=== PATIENT | female | born 1955 | race Caucasian/White ===

== ENCOUNTER → 2019-06-13 14:10 | Outpatient (CLI) | payer MEDICARE, BC, SELFPAY ==
--- NOTE | 2019-06-13 14:16 | US_ITS ---
STUDY: ULTRASOUND OF THE FEMALE PELVIS - COMPLETE REASON FOR EXAM: Female, 63 years old. Postmenopausal bleeding. LMP: Post menopause. TECHNIQUE: Transabdominal and Transvaginal. Transabdominal ultrasound is limited. TECHNICAL QUALITY: Adequate. COMPARISON: None. FINDINGS: The uterus is retroverted and is in a midline position. The uterus measures 7.9 x 3.7 x 4.0 cm. Normal uterine cervix. The endometrium is suboptimally visualized and suggested to measure 18.4 mm in thickness, and is heterogeneous (striated). Cannot exclude an endometrial mass. There is no demonstrated myometrial mass. I.U.D. - The patient does not have an I.U.D. there are several calcifications throughout the uterus which may be related to calcified uterine vessels, cannot exclude small uterine fibroids. The bilateral ovaries are not visualized. There is no fluid in the cul-de-sac. The pre void volume of the bladder was 197 ml. US/Transvaginal Non- IMPRESSION: Small uterine fibroids versus calcified uterine vessels. Heterogeneous enlargement of the endometrial stripe, cannot exclude endometrial mass. In the clinical presentation, endometrial hyperplasia or carcinoma cannot be excluded. If indicated, follow-up with [employer] consultation or further characterization with MRI of the pelvis in nonacute setting recommended. Electronically Signed: Courtney Goetz MD at 3:29 EST , Service support ,
== END ==
PROVIDERS: Family Provider Family Medicine; PCP Family Medicine; Referring Provider Nurse Practitioner Family; Visit Provider Nurse Practitioner Family
DX: N95.0 Postmenopausal bleeding (principal)
CPT/HCPCS: 76830; 76856

== ENCOUNTER 2021-12-28 12:24 | Outpatient (RCR) | payer MEDICARE, BC, SELFPAY ==
--- NOTE | 2021-12-28 14:58 | HP.OTEVAL ---
Patient's Visit Information SHANNAN CORREIA is a 66 year old F, referred to Occupational Therapy by LEORA ASTORGA, with a diagnosis of lymphedema. Date of Evaluation: 12/28/21 Occupational Therapist: Heydi King, TAMRA/Noah, CHT - Subjective This 66 year old female was seen for OT eval with dx of edema- pt states she was also referred to a vascular specialist Dr. Trejo but the apt was postponed for about two weeks- pt states she has had swelling for awhile- pt states she has had water pill adjustment over the years- and feel pretty good about mtg. her LE swelling- pt is not sure what compression class her compression socks were-. Breas cancer in 2012- pancreatic cancer dx in 2019 sx in 2020- pt states she has small sites of mets to liver that she is currently being treated for. pt states she has been sleeping in her recliner because her hips hurt when she is in her bed- states feet and ankles are not swollen in the am. pt states she has been wearing her compression socks for about a week- pt states got them from the pharmacy in [place]- pt has concerns with attending a consistent therapy program- - Lymphedema (Circumferential Measure) Mid-foot: right 23cm left 23m Ankle: right 28cm left 27cm Lower calf: right 33cm left 32cm Largest calf: right 45cm left 46cm Below knee: right 43cm left 44cm - Lower Limb Functional Index Lower Extremity Functional Score: 17 - Goals Demonstrate a 20% reduction in edema by d/c: Yes Demonstrate adequate knowledge of self-massage by 2nd week: Yes Demonstrate adequate knowledge skin care/prec by 2nd week: Yes Demonstrate adequate knowledge therapeutic exercises by d/c: Yes Select approp compression garment w/donning/care/wear by d/c: Yes Voice need to replace compression garment every 4-6mo by dc: Yes - Rehabilitation General Assessment: pt demo with bilateral LE edema and in need of ed. on life long mtg of her swelling (lymphedema) pt is worried about cost of compression devices and attending therapy- Therapist reassured pt that she will be ed. on life long mtg of edema and she can do her HEP. pt agreed to therapy session - Today therapist ed. pt on lymph stimulations exercise and self manual lymph drainage massage - along with need of 20-30 mmHg compression socks or transition to legging if she feels she has swelling above knees- (pt demo understanding) - Therapist ed. pt on skin care and precautions- advised pt to continue with her current compression socks and initiate her lymph stim ex. 3-4 x a day ( using support and to her comfort level) along with SMLD edison. 2 x a day- pt was given handouts and demo understanding and agree to POD. Rehabilitation Potential: Questionable - Anticipated Interventions Education re Life-long lymphedema Management, Education re Skin Care and Precautions, Education re Self Massage Techniques, Education re Correct Donning Tech,Care&Wearing Sched Comp Garments, Home Program - Visit Plan TEXT: Thank you for the opportunity to evaluate your patient. For Medicare and Medicare HMO plans, please review the plan of care and approve it. It will need to be FAXED BACK to us at [phone] for Medicare purposes. Please let me know if there are questions or concerns regarding this plan of care. Physician Signature: Date:
== END 2021-12-28 19:00 | disposition home or self-care (01) ==
LOC: OT 12:24
PROVIDERS: PCP Internal Medicine
DX: R60.9 Edema, unspecified (principal)
CPT/HCPCS: 97166; 97530